=== PATIENT | male | born 1995 ===

== ENCOUNTER 2017-08-31 13:52 | Emergency (ER) | payer OTHER ==
[2017-08-31 14:05] VITALS: BP 156/78; PULSE 86; RESP 20; TEMP 98.5; O2SAT 100
[2017-08-31] MEDS ORDERED: Amoxicillin-Clav 875-125 mg Tab PO STA (14:16)
--- NOTE | 2017-08-31 14:18 | C.PDOC ---
History Of Present Illness 22 yo male w/o significant PMHx come in for evaluation of Right earache gradually developed for past 2 months. Pt describes pain as aching associated with ringing, intermittent dizziness, nausea. Pt admits, " had severe cold prior to onset of Right earache". Otherwise, pt denies high fever, chills, denies worse headache of life, ear discharges, sore throat, drooling, toothache , neck pain, CP, SOB, dyspnea, cough, abd. pain, V/D, UTI sx. Ambulate to ED for evaluation, not in any apparent distress. Time Seen by Provider: 08/31/17 14:08 Chief Complaint (Nursing): ENT Problem History Per: Patient Onset/Duration Of Symptoms: Gradual Past Medical History Reviewed: Historical Data, Nursing Documentation, Vital Signs Vital Signs: Last Vital Signs Temp 98.5 F 08/31/17 14:02 Pulse 86 08/31/17 14:02 Resp 20 08/31/17 14:02 BP 156/78 H 08/31/17 14:02 Pulse Ox 100 08/31/17 14:02 - Medical History PMH: No Chronic Diseases Surgical History: No Surg Hx Family History: States: No Known Family Hx - Social History Hx Tobacco Use: No Hx Alcohol Use: No Hx Substance Use: No Review Of Systems Except As Marked, All Systems Reviewed And Found Negative. Constitutional: Negative for: Fever, Chills, Malaise ENT: Positive for: Ear Pain. Negative for: Ear Discharge, Nose Pain, Nose Discharge, Nose Congestion, Throat Pain, Throat Swelling Cardiovascular: Negative for: Chest Pain, Edema, Light Headedness Respiratory: Negative for: Cough, Shortness of Breath, Wheezing Gastrointestinal: Positive for: Nausea. Negative for: Vomiting, Abdominal Pain Genitourinary: Negative for: Incontinence Musculoskeletal: Negative for: Neck Pain, Back Pain Skin: Negative for: Rash Neurological: Positive for: Headache, Dizziness. Negative for: Weakness, Numbness, Altered Mental Status Physical Exam - Physical Exam Appears: Well, Non-toxic, No Acute Distress Skin: Normal Color, Warm, Dry, No Rash Head: Normacephalic Eye(s): bilateral: PERRL Ear(s): Left: Normal, Right: TM Dull ((+)water level behing TM. NO mastoid tenderness, edema or eyrthema.) Nose: No Flaring, No Discharge Oral Mucosa: Moist, No Drooling Tongue: Normal Appearing Lips: Normal Appearing Throat: No Erythema, No Drooling Neck: Trachea Midline, No Midline Cervical Tenderness, No Paracervical Tenderness, No Step Off Deformity, Supple Lymphatic: No Adenopathy (cervical) Cardiovascular: Rhythm Regular, No Murmur, No JVD Respiratory: No Decreased Breath Sounds, No Accessory Muscle Use, No Stridor, No Wheezing Gastrointestinal/Abdominal: Soft, No Tenderness Back: No CVA Tenderness Extremity: Normal ROM, No Deformity, No Swelling Neurological/Psych: Oriented x3, Normal Speech, Normal Motor, Normal Sensation, Normal Reflexes ED Course And Treatment O2 Sat by Pulse Oximetry: 100 Pulse Ox Interpretation: Normal Progress Note: . On re-evaluation, pt is AFebrile, hemodynamicaly stable. Non- toxic. AMbulatory in ED with stable gait. neck: SUpple, (-) meningeal sign. ENT : (+)Right ear c/w serous OM, no mastoid edema or erythema. Uvula midline, no edema. Lungs: CTA B/L, BS equal B/L. ABd: benign, (-) guarding, (-) rebound. Neurologicaly intact. PT has clinical findings c/w Right OM r/o labirinthitis. Pt advised on course of ds. ref. to F/u with PMD, ENT in 1-2 days for re-eval, Pt understand and agrees with plan. Disposition Counseled Patient/Family Regarding: Diagnosis, Need For Followup, Rx Given - Disposition Referrals: [facility] [Outside] Venkat Nichols MD [Staff Provider] - Disposition: HOME/ ROUTINE Disposition Time: 14:17 Condition: STABLE Additional Instructions: Encourage fluids Take medication as prescribed Follow up with PMD, ENT in 2-3 days for re-evaluation. return to ED if any worsening or new changes. Prescriptions: Amoxicillin/Clavulanate [Augmentin 875 MG-125 MG] 1 tab PO BID #14 tab Ibuprofen [Motrin Tab] 400 mg PO TID #20 tab Meclizine [Antivert] 12.5 mg PO DAILY #10 tab Prednisone [Deltasone] 40 mg PO DAILY #8 tablet Instructions: Labyrinthitis, Vertigo (a Type of Dizziness), Serous Otitis Media - Clinical Impression Clinical Impression: Otitis media, Labyrinthine disorder
[2017-08-31] MEDS ORDERED: Amoxicillin-Clav 875-125 mg Tab PO ONE (14:23)
== END 2017-08-31 14:42 | disposition home or self-care (01) ==
LOC: C.ER 13:52
DX: H66.91 Otitis media, unspecified, right ear (principal); H83.91 Unspecified disease of right inner ear